=== PATIENT | male | born 1950 | race Caucasian/White ===

== ENCOUNTER → 2016-12-11 | Outpatient (CLI) | payer MEDICARE, MEDICAID ==
--- NOTE | 2016-12-11 15:22 | RADRPT ---
PROCEDURE: XR Knees. CLINICAL INDICATION: Bilateral knee pain. TECHNIQUE: Total of eight views. Weightbearing frontal, oblique, and lateral views of the both kn ees. Patellar views of both knees. COMPARISON: No prior study is available for comparison. FINDINGS: There is no fracture or dislocation. There are small bilateral joint effusions. There are degenerative changes of both knees with osteophytes arising from all 3 joint compartment m argins. There is bilateral medial joint compartment narrowing. There is no lytic or blastic lesion. There is no radiopaque foreign body. IMPRESSION: 1. Small bilateral joint effusions. 2. Moderate degenerative changes of both knees predominately involving the medial joint compartment s. RPTAT: QQ .Stephane Felix MD, MD Date Time Electronically viewed and signed by .Stephane Felix MD, on 12/11/2016 15:22 .R/
--- NOTE | 2016-12-11 15:26 | RADRPT ---
PROCEDURE: XR Pelvis and Hips. CLINICAL INDICATION: Pelvic pain. Bilateral hip pain. TECHNIQUE: Five views. Frontal pelvis. Frontal and lateral right hip. Frontal and lateral left hip. COMPARISON: No prior studies are available for comparison. FINDINGS: There is no fracture or dislocation. The soft tissues are normal. There are degenerative changes of both hips with osteophytes noted. There is no joint space narrowi ng or deformity. There is no lytic or blastic lesion. There is no radiopaque foreign body. IMPRESSION: 1. Mild degenerative changes of both hips. 2. Otherwise unremarkable study. RPTAT: QQ .Stephane Felix MD, MD Date Time Electronically viewed and signed by .Stephane Felix MD, MD on 12/11/2016 15:26 .R/
== END | disposition home or self-care (01) ==
LOC: HKI 09:20
PROVIDERS: ATTEND Orthopaedic Surgery
DX: M25.551 Pain in right hip (principal); M25.552 Pain in left hip; M54.16 Radiculopathy, lumbar region; M51.36 Other intervertebral disc degeneration, lumbar region
CPT/HCPCS: 73523; 73564; G0463

== ENCOUNTER → 2016-12-28 | Outpatient (CLI) | END | disposition home or self-care (01) | DX: M16.0 Bilateral primary osteoarthritis of hip (principal); I10 Essential (primary) hypertension; E78.00 Pure hypercholesterolemia, unspecified; R10.13 Epigastric pain; M51.26 Other intervertebral disc displacement, lumbar region; M50.21 Other cervical disc displacement, high cervical region; M25.562 Pain in left knee; M25.561 Pain in right knee | CPT/HCPCS: 20610; 73522; 73562; G0463 ==